=== PATIENT | male | born 1965 | race African-American/Black ===

== ENCOUNTER 2022-11-24 17:05 | Emergency (ER) | payer OTHER ==
[~2022-11-24] VITALS: Ht 180.3 cm; Wt 77.5 kg
[2022-11-24 17:56] VITALS: TEMP 97.2
[2022-11-24] MEDS ORDERED: HYDROCODONE/ACETAMINOPHEN 5-325 MG TABLET PO ONE (18:00)
[2022-11-24] MEDS ORDERED: KETOROLAC TROMETHAMINE 60 MG/2 ML VIAL IM ONE (18:00)
[2022-11-24 19:53] VITALS: BP 136/89; PULSE 89; RESP 16
== END 2022-11-24 20:03 | disposition home or self-care (01) ==
LOC: EMS 17:05
DX: S46.911A Strain of unspecified muscle, fascia and tendon at shoulder and upper arm level, right arm, initial encounter (principal); S13.4XXA Sprain of ligaments of cervical spine, initial encounter; X58.XXXA Exposure to other specified factors, initial encounter; Y93.89 Activity, other specified; Y92.89 Other specified places as the place of occurrence of the external cause; Y99.8 Other external cause status
CPT/HCPCS: 99284; 71045; 72040; 72070; 72100; 73030; 96372; J1885